=== PATIENT | male | born 1995 | race Two or more races ===

== ENCOUNTER 2018-12-24 09:00 | Emergency (ER) | payer SELFPAY ==
[2018-12-24] MEDS ORDERED: Water For Injection, Sterile 50 ML SDV INJECT SCH (09:45)
[2018-12-24] MEDS: ceFAZolin 1 GM Vial IM ONE (09:50)
[2018-12-24] MEDS: Water For Injection, Sterile 20 ML ONE (09:51)
[2018-12-24] MEDS: Ketorolac 30 MG/ML SDV IM ONE (09:51)
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
[2018-12-24] MEDS: Diphtheria,Pertussis(Acell),Tetanus Vaccine 0.5 ML Syringe IM ONE (09:56)
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
[2018-12-24] MEDS: Bacitracin Oint 1 GM U/D Packet TOP ONE (11:23)
== END 2018-12-24 11:37 | disposition home or self-care (01) ==
LOC: MW.ED 09:00
DX: S93.402A Sprain of unspecified ligament of left ankle, initial encounter (principal); M79.642 Pain in left hand; S80.811A Abrasion, right lower leg, initial encounter; F17.210 Nicotine dependence, cigarettes, uncomplicated; V29.88XA Motorcycle rider (driver) (passenger) injured in other specified transport accidents, initial encounter
CPT/HCPCS: 73070-26-LT; 73070-LT; 73100-26-LT; 73100-LT; 73120-26-RT; 73120-RT; 73600-26-LT; 73600-LT; 90471; 96372; 99283; 99284-25; J0690; J1885